=== PATIENT | male | born 1990 | race Caucasian/White ===

== ENCOUNTER 2019-12-11 10:35 | Emergency (ER) | payer MEDICAID ==
[~2019-12-11] VITALS: Ht 190.5 cm; Wt 155.9 kg
[~2019-12-11 10:35] MED LIST: VENL225T3 PO
[2019-12-11 11:15] LABS: BASOPHILS # (AUTO) 0.1 X10'3 (0-0.2); EOSINOPHILS # (AUTO) 0.2 X10'3 (0-0.9); EOSINOPHILS % (AUTO) 3.2 % (0-6); HEMATOCRIT 45.1 % (42.0-52.0); HEMOGLOBIN 15.6 g/dl (14.0-17.9); LYMPHOCYTES # (AUTO) 1.9 X10'3 (1.1-4.8); LYMPHOCYTES % (AUTO) 32.5 % (21-51); MEAN CORPUSCULAR HEMOGLOBIN 30.9 PG (27.0-31.0); MEAN CORPUSCULAR HGB CONC 34.7 g/dL (33.0-36.5); MEAN CORPUSCULAR VOLUME 89.2 FL (78-98); MEAN PLATELET VOLUME 7.6 FL (7.4-10.4); MONOCYTES # (AUTO) 0.4 X10'3 (0-0.9); MONOCYTES % (AUTO) 7.5 % (2-12); NEUTROPHILS # (AUTO) 3.2 X10'3 (1.8-7.7); NEUTROPHILS % (AUTO) 55.8 % (42-75); PLATELET COUNT 283 X10'3 (140-440); RED BLOOD COUNT 5.06 X10'6 (4.70-6.10); RED CELL DISTRIBUTION WIDTH 12.4 % (11.5-14.5); WHITE BLOOD COUNT 5.8 X10'3 (4.5-11.0)
[2019-12-11 11:28] LABS: ALANINE AMINOTRANSFERASE 37 U/L (12-78); ALBUMIN 4.3 G/DL (3.4-5.0); ALBUMIN/GLOBULIN RATIO 1.1 (1.1-1.5); ALKALINE PHOSPHATASE 69 IU/L (46-116); ANION GAP 6 (8-16); ASPARTATE AMINO TRANSFERASE 17 U/L (10-37); BILIRUBIN,TOTAL 0.3 MG/DL (0.1-1.0); BLOOD UREA NITROGEN 13 MG/DL (7-18); BUN/CREATININE RATIO 14.8 (5.4-32.0); CALCIUM 9.6 MG/DL (8.5-10.1); CHLORIDE 104 MMOL/L (99-107); CREATININE 0.88 MG/DL (0.60-1.10); ETHANOL < 0.010 GM/DL (0.0-0.010); GLUCOSE 90 MG/DL (70-104); POTASSIUM 4.4 MMOL/L (3.5-5.1); SODIUM 140 MMOL/L (135-145); TOTAL PROTEIN 8.3 G/DL (6.4-8.2); eGFR > 90 ML/MIN
--- NOTE | 2019-12-11 11:54 | NUR ---
Pt moved from bed 8 in the main ED to OF bed 23. Pt resting comfortably on the bed, awake and looking around. Pt has visitor at bedside who stepped out for a moment to inform other family member of the change in location. Pt provided with water pitcher.
[2019-12-11 12:02] LABS: URINE AMPHETAMINE SCREEN NEGATIVE (Neg); URINE BARBITUATE SCREEN NEGATIVE (Neg); URINE BENZODIAZEPINES SCREEN NEGATIVE (Neg); URINE CANNABINOID SCREEN POSITIVE (Neg); URINE COCAINE SCREEN NEGATIVE (Neg); URINE METHADONE SCREEN NEGATIVE (Neg); URINE OPIATE SCREEN NEGATIVE (Neg); URINE PHENCYCLIDINE SCREEN NEGATIVE (Neg)
[2019-12-11 12:11] LABS: CLARITY,URINE CLEAR (Clear); COLOR,URINE YELLOW (Yellow); GLUCOSE, URINE NEGATIVE (Neg); KETONES,URINE NEGATIVE (Neg); LEUKOCYTE ESTERASE ,URINE NEGATIVE (Neg); NITRITES, URINE NEGATIVE (Neg); OCCULT BLOOD,URINE NEGATIVE (Neg); PH,URINE 7.5 (4.8-8.0); PROTEIN,URINE NEGATIVE (Neg); UROBILINOGEN,URINE 0.2 E.U/dL (0.2-1.0)
[2019-12-11 12:16] LABS: UA COLLECTION TYPE CLN CATCH MIDSTREAM
--- NOTE | 2019-12-11 12:39 | NUR ---
Pt. packet is faxed to [facility].
--- NOTE | 2019-12-11 18:22 | NUR ---
Assumed care of patient, pt. sitting up in bed at this time eating dinner. Famliy/friends are at bedside, rr even and unlabored.
--- NOTE | 2019-12-11 20:30 | NUR ---
1:1 completed at bedside with pt's family present per his consent. Pt. endorses S/I with a plan to jump off a bridge. He denies any A/V/BHATT and no delusional statements made. Pt. reports he was triggered by some financial issues last year, and is currently trying to get back on his feet. He is living at home and reports that his family is a good support system.
--- NOTE | 2019-12-11 22:01 | NUR ---
MACKENZIEH writing [id number] hold on pt., [facility] looking into possible acceptance
--- NOTE | 2019-12-11 22:30 | NUR ---
Pt. sleeping at this time, laying on rt. side, appears to be resting comfortably.
[2019-12-11] MEDS ORDERED: VENL225T3 PO (22:55)
--- NOTE | 2019-12-11 23:36 | NUR ---
Mother: Nyla (cell phone) [phone]
--- NOTE | 2019-12-12 00:14 | NUR ---
[facility] called to evaluated pt. for potential placement.
--- NOTE | 2019-12-12 00:26 | NUR ---
Dr. Norton ordered TSH level on pt. r/t level needed per [facility], will fax results along with pt's [id number].
--- NOTE | 2019-12-12 00:34 | NUR ---
Pt. sleeping at this time, laying on his back, rr even and unlabored.
--- NOTE | 2019-12-12 00:37 | NUR ---
Pt. accepted at [facility] tomorrow AM at approximately 0800 pending review of [id number] and TSH levels.
--- NOTE | 2019-12-12 02:30 | NUR ---
Pt. continues to sleep, laying on rt. side rr even and unlabored.
--- NOTE | 2019-12-12 04:33 | NUR ---
Pt. sleeping on his left side at this time, appears to be resting comfortably.
[2019-12-12 05:18] VITALS: BP 120/71
--- NOTE | 2019-12-12 06:03 | NUR ---
Pt. continues to sleep, laying on his back, appears to be resting comfortably.
[2019-12-12] MEDS ORDERED: venlafaxine XR 75mg capsule (Q24H) PO SCH (08:00)
--- NOTE | 2019-12-12 08:38 | NUR ---
pt ate breakfast took meds now laying in bed awake
--- NOTE | 2019-12-12 09:15 | NUR ---
pt took off out of overflow secerity went after him
--- NOTE | 2019-12-12 09:19 | NUR ---
pt got up walked out of room tech asked him what he was doing kept going secerty went after him but got away from him and got off the ground [facility] called given a discritopsion and direction of travel
--- NOTE | 2019-12-12 10:14 | NUR ---
family notifed of pt elopment
== END 2019-12-12 09:26 ==
LOC: ER 10:35
DX: F32.9 Major depressive disorder, single episode, unspecified (principal); F41.9 Anxiety disorder, unspecified; Z79.899 Other long term (current) drug therapy
CPT/HCPCS: 36415; 80053; 80305; 80320; 81003; 84443; 85025; 99285

== ENCOUNTER 2019-12-12 10:38 | Emergency (ER) | payer MEDICAID ==
[~2019-12-12] VITALS: Ht 190.5 cm; Wt 154.6 kg
[2019-12-12 11:57] LABS: URINE AMPHETAMINE SCREEN NEGATIVE (Neg); URINE BARBITUATE SCREEN NEGATIVE (Neg); URINE BENZODIAZEPINES SCREEN NEGATIVE (Neg); URINE CANNABINOID SCREEN POSITIVE (Neg); URINE COCAINE SCREEN NEGATIVE (Neg); URINE METHADONE SCREEN NEGATIVE (Neg); URINE OPIATE SCREEN NEGATIVE (Neg); URINE PHENCYCLIDINE SCREEN NEGATIVE (Neg)
--- NOTE | 2019-12-12 12:33 | NUR ---
pt brought back from main er pt eloped earlier and was brought back by family. [facility] called and needs a new medical clearnce redone
--- NOTE | 2019-12-12 13:18 | NUR ---
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
[2019-12-12 17:26] VITALS: BP 142/50
--- NOTE | 2019-12-12 17:34 | NUR ---
pt laying in bed visting with his brother on s/s of wanting to elope has asked when he will be transfered to a [facility] place
--- NOTE | 2019-12-12 18:30 | NUR ---
Received report and assumed pt care. Visitor at bedside.
--- NOTE | 2019-12-12 20:00 | NUR ---
Mother at bedside.
== END 2019-12-12 20:47 ==
LOC: ER 10:39
DX: R45.851 Suicidal ideations (principal); F41.9 Anxiety disorder, unspecified; Z79.899 Other long term (current) drug therapy
CPT/HCPCS: 80305; 99285

== ENCOUNTER 2022-10-16 09:47 | Emergency (ER) | payer BC, MEDICAID ==
[~2022-10-16] VITALS: Ht 190.5 cm; Wt 170.0 kg
[2022-10-16 10:10] LABS: BASOPHILS # (AUTO) 0.1 X10'3 (0-0.2); BASOPHILS % (AUTO) 1.5 % (0-1); EOSINOPHILS # (AUTO) 0.3 X10'3 (0-0.9); EOSINOPHILS % (AUTO) 4.2 % (0-6); HEMATOCRIT 44.8 % (42.0-52.0); HEMOGLOBIN 15.4 g/dl (14.0-17.9); LYMPHOCYTES # (AUTO) 2.9 X10'3 (1.1-4.8); LYMPHOCYTES % (AUTO) 39.9 % (21-51); MEAN CORPUSCULAR HEMOGLOBIN 30.7 PG (27.0-31.0); MEAN CORPUSCULAR HGB CONC 34.4 g/dL (33.0-36.5); MEAN CORPUSCULAR VOLUME 89.2 FL (78-98); MEAN PLATELET VOLUME 7.3 FL (7.4-10.4); MONOCYTES # (AUTO) 0.5 X10'3 (0-0.9); MONOCYTES % (AUTO) 6.8 % (2-12); NEUTROPHILS # (AUTO) 3.4 X10'3 (1.8-7.7); NEUTROPHILS % (AUTO) 47.6 % (42-75); PLATELET COUNT 274 X10'3 (140-440); RED BLOOD COUNT 5.03 X10'6 (4.70-6.10); RED CELL DISTRIBUTION WIDTH 12.5 % (11.5-14.5); WHITE BLOOD COUNT 7.2 X10'3 (4.5-11.0)
[2022-10-16 10:32] VITALS: BP 171/91
[2022-10-16 10:36] LABS: ALANINE AMINOTRANSFERASE 29 U/L (12-78); ALBUMIN 4.2 G/DL (3.4-5.0); ALBUMIN/GLOBULIN RATIO 1.1 (1.1-1.5); ALKALINE PHOSPHATASE 64 IU/L (46-116); ANION GAP 6 (8-16); ASPARTATE AMINO TRANSFERASE 21 U/L (10-37); BILIRUBIN,TOTAL 0.4 MG/DL (0.1-1.0); BLOOD UREA NITROGEN 15 MG/DL (7-18); BUN/CREATININE RATIO 12.9 (5.4-32.0); CALCIUM 8.9 MG/DL (8.5-10.1); CHLORIDE 102 MMOL/L (99-107); CREATININE 1.16 MG/DL (0.60-1.10); GLUCOSE 99 MG/DL (70-104); MAGNESIUM 2.4 MG/DL (1.5-2.4); POTASSIUM 4.2 MMOL/L (3.5-5.1); SODIUM 137 MMOL/L (135-145); TOTAL PROTEIN 8.1 G/DL (6.4-8.2); eGFR 73 ML/MIN
== END 2022-10-16 12:55 | disposition home or self-care (01) ==
LOC: ER 09:47
DX: R07.89 Other chest pain (principal); F12.90 Cannabis use, unspecified, uncomplicated; Z79.899 Other long term (current) drug therapy
CPT/HCPCS: 36415; 71045; 80053; 83735; 83880; 84484; 85025; 93005; 99285

== ENCOUNTER 2025-01-07 12:40 | Emergency (ER) | payer BC, MEDICAID ==
[~2025-01-07] VITALS: Ht 190.5 cm; Wt 165.9 kg
[2025-01-07 14:03] LABS: BASOPHILS % (AUTO) 0.8 % (0-1); EOSINOPHILS % (AUTO) 0.9 % (0-6); HEMATOCRIT 46.4 % (42.0-52.0); LYMPHOCYTES # (AUTO) 1.3 X10'3 (1.1-4.8); LYMPHOCYTES % (AUTO) 30.7 % (21-51); MEAN CORPUSCULAR HEMOGLOBIN 30.1 PG (27.0-31.0); MEAN CORPUSCULAR HGB CONC 34.4 g/dL (33.0-36.5); MEAN CORPUSCULAR VOLUME 87.5 FL (78-98); MEAN PLATELET VOLUME 7.3 FL (7.4-10.4); MONOCYTES # (AUTO) 0.6 X10'3 (0-0.9); NEUTROPHILS # (AUTO) 2.3 X10'3 (1.8-7.7); NEUTROPHILS % (AUTO) 53.6 % (42-75); PLATELET COUNT 243 X10'3 (140-440); RED BLOOD COUNT 5.31 X10'6 (4.70-6.10); RED CELL DISTRIBUTION WIDTH 13.3 % (11.5-14.5); WHITE BLOOD COUNT 4.4 X10'3 (4.5-11.0)
[2025-01-07 14:23] LABS: ALANINE AMINOTRANSFERASE 31 U/L (12-78); ALBUMIN 3.8 G/DL (3.4-5.0); ALBUMIN/GLOBULIN RATIO 0.8 (1.1-1.5); ALKALINE PHOSPHATASE 68 IU/L (46-116); ANION GAP 9 (8-16); ASPARTATE AMINO TRANSFERASE 12 U/L (10-37); BILIRUBIN,TOTAL 0.5 MG/DL (0.1-1.0); BLOOD UREA NITROGEN 13 MG/DL (7-18); BUN/CREATININE RATIO 12.9 (10.0-20.0); CALCIUM 8.8 MG/DL (8.5-10.1); CHLORIDE 102 MMOL/L (99-107); CREATININE 1.01 MG/DL (0.60-1.10); GLUCOSE 94 MG/DL (70-104); LIPASE 17 U/L (16-77); POTASSIUM 3.8 MMOL/L (3.5-5.1); SODIUM 136 MMOL/L (135-145); TOTAL CARBON DIOXIDE 24.9 MMOL/L (24-32); TOTAL PROTEIN 8.5 G/DL (6.4-8.2); eCRCL 123 ML/MIN; eGFR 85 ML/MIN
[2025-01-07 15:12] LABS: BILIRUBIN,URINE NEGATIVE (Neg); CLARITY,URINE CLEAR (Clear); COLOR,URINE YELLOW (Yellow); GLUCOSE, URINE NEGATIVE (Neg); KETONES,URINE NEGATIVE (Neg); LEUKOCYTE ESTERASE ,URINE NEGATIVE (Neg); NITRITES, URINE NEGATIVE (Neg); OCCULT BLOOD,URINE NEGATIVE (Neg); PROTEIN,URINE NEGATIVE (Neg); UROBILINOGEN,URINE 0.2 E.U/dL (0.2-1.0)
[2025-01-07 15:18] LABS: UA COLLECTION TYPE VOIDED
[2025-01-07 15:38] VITALS: BP 146/76; PULSE 87; RESP 16; TEMP 98.2; O2SAT 96
== END 2025-01-07 15:42 | disposition home or self-care (01) ==
LOC: ER 12:41
DX: K52.9 Noninfective gastroenteritis and colitis, unspecified (principal); R11.10 Vomiting, unspecified; F41.9 Anxiety disorder, unspecified; F32.A Depression, unspecified; F12.90 Cannabis use, unspecified, uncomplicated; Z79.899 Other long term (current) drug therapy
CPT/HCPCS: 36415; 76700; 80053; 81003; 83690; 85025; 99284